=== PATIENT | female | born 1970 | race African-American/Black ===

== ENCOUNTER 2021-03-03 19:35 | Emergency (ER) | payer MEDICAID ==
[~2021-03-03] VITALS: Ht 185.4 cm; Wt 75.0 kg
[~2021-03-03 19:35] MED LIST: HALDOL; OLAN2.5T3 PO
[2021-03-03 21:06] VITALS: BP 158/91
== END 2021-03-03 21:10 | disposition home or self-care (01) ==
LOC: ER 19:35
DX: M79.89 Other specified soft tissue disorders (principal); Z86.59 Personal history of other mental and behavioral disorders
CPT/HCPCS: 99281

== ENCOUNTER 2021-05-01 14:52 | Emergency (ER) | payer MEDICAID ==
[~2021-05-01] VITALS: Ht 185.4 cm; Wt 73.0 kg
[2021-05-01 14:58] VITALS: BP 130/90
== END 2021-05-01 15:12 | disposition left against medical advice (07) ==
LOC: ER 15:01
DX: Z53.21 Procedure and treatment not carried out due to patient leaving prior to being seen by health care provider (principal)

== ENCOUNTER 2021-05-09 18:09 | Emergency (ER) | payer MEDICAID ==
[~2021-05-09] VITALS: Ht 175.3 cm; Wt 72.6 kg
[2021-05-09] MEDS ORDERED: MAGNESIUM/ALUMINUM HYDROXIDE/SIMETHICONE 30ML UDC PO STA (18:36)
[2021-05-09] MEDS ORDERED: KETOROLAC 30MG/ML VIAL IV STA (18:36)
[2021-05-09] MEDS ORDERED: SODIUM CHLORIDE 0.9% 1,000 ML IV ONE (18:45)
[2021-05-09 18:50] VITALS: BP 130/89
[2021-05-09 18:52] LABS: CHLORIDE 107 mEq/L (98-107)
[2021-05-09 18:53] LABS: BASOPHILS % 0.6 % (0.0-2.0); EOSINOPHILS % 0.2 % (0.0-5.0); HEMATOCRIT. 39.7 % (36.0-48.0); HEMOGLOBIN. 13.3 g/dL (12.0-16.0); LYMPHOCYTES % 21.8 % (20.0-50.0); MEAN CORPUSCULAR VOLUME 92.2 fL (81.0-99.0); MEAN PLATELET VOLUME 7.8 fl (7.4-10.4); MONOCYTES % 8.4 % (2.0-8.0); PLATELET 54 x1000/uL (130-400)
[2021-05-09 18:56] LABS: ETHANOL BLOOD 269 mg/dL
[2021-05-09] MEDS ORDERED: POTASSIUM CHLORIDE 20MEQ TABLET SR PO ONE (19:15)
[2021-05-09] MEDS ORDERED: CHLORDIAZEPOXIDE 25MG CAPSULE PO ONE (19:15)
== END 2021-05-09 19:29 | disposition left against medical advice (07) ==
LOC: ER 18:09
DX: T51.0X1A Toxic effect of ethanol, accidental (unintentional), initial encounter (principal); R10.33 Periumbilical pain; F20.9 Schizophrenia, unspecified; F31.9 Bipolar disorder, unspecified; E87.6 Hypokalemia; Y90.8 Blood alcohol level of 240 mg/100 ml or more; Y92.018 Other place in single-family (private) house as the place of occurrence of the external cause
CPT/HCPCS: 36415; 80053; 80320; 83690; 85025; 96361; 96374; 99283; J1885; J7030; Z7610; G0480

== ENCOUNTER 2021-05-15 06:36 | Emergency (ER) | payer MEDICAID ==
[~2021-05-15] VITALS: Ht 185.4 cm; Wt 75.0 kg
[2021-05-15] MEDS: ONDANSETRON HCL 4MG/2ML INJ IV STA (07:07)
[2021-05-15] MEDS: MORPHINE SULFATE 4 MG/ML CPJ (NOT FOR IM USE) IV STA (07:07)
[2021-05-15] MEDS: FAMOTIDINE 20MG/2ML VIAL IV STA (07:07)
[2021-05-15] MEDS: SODIUM CHLORIDE 0.9% 1,000 ML IV ONE (07:08)
[2021-05-15 07:15] LABS: HEMATOCRIT. 38.6 % (36.0-48.0); MEAN CORPUSCULAR HEMOGLOBIN 30.7 pg (28.0-32.0); MEAN CORPUSCULAR VOLUME 91.1 fL (81.0-99.0); MEAN PLATELET VOLUME 7.8 fl (7.4-10.4); PLATELET 69 x1000/uL (130-400); RED BLOOD CELL COUNT 4.24 mill/uL (4.2-5.4); RED CELL DISTRIBUTION WIDTH 15.3 % (11.6-14.6)
[2021-05-15 07:23] LABS: CHLORIDE 113 mEq/L (98-107)
[2021-05-15 07:27] LABS: ETHANOL BLOOD 167 mg/dL
[2021-05-15 07:28] LABS: INR 1.1; PROTHROMBIN TIME 11.5 sec (9.6-11.0)
[2021-05-15 08:14] LABS: PLATELET ESTIMATE DECREASED
[2021-05-15] MEDS ORDERED: ONDA4TAB5 MT (08:17)
[2021-05-15] MEDS ORDERED: OMEP20CA14 MT (08:17)
[2021-05-15] MEDS ORDERED: POTA20TA82 MT (08:17)
[2021-05-15 08:35] LABS: CLARITY URINE CLOUDY (CLEAR); COLOR URINE YELLOW (YELLOW); KETONES URINE NEGATIVE (NEGATIVE); LEUKOCYTE ESTERASE URINE NEGATIVE (NEGATIVE); NITRITE URINE NEGATIVE (NEGATIVE); OCCULT BLOOD URINE NEGATIVE (NEGATIVE); PH URINE 7.5 (4.5-8.0); PROTEIN URINE NEGATIVE (NEGATIVE); UROBILINOGEN URINE 0.2 E.U./dL (0.2-1.0)
[2021-05-15 08:46] LABS: *AMPHETAMINES SCREEN URINE NEGATIVE (NEGATIVE); *BARBITURATES SCREEN URINE NEGATIVE (NEGATIVE); *BENZODIAZEPINES SCREEN URINE NEGATIVE (NEGATIVE); *COCAINE SCREEN URINE NEGATIVE (NEGATIVE)
[2021-05-15 08:47] LABS: CANNABINOID URINE SCREEN NEGATIVE (NEGATIVE); METHADONE URINE SCREEN NEGATIVE (NEGATIVE); OPIATES URINE SCREEN PRESUMTIVE POSITIVE (NEGATIVE); PHENCYCLIDINE URINE SCREEN NEGATIVE (NEGATIVE)
[2021-05-15 08:50] VITALS: BP 139/68
== END 2021-05-15 08:58 | disposition home or self-care (01) ==
LOC: ER 06:36
DX: K80.50 Calculus of bile duct without cholangitis or cholecystitis without obstruction (principal); F10.129 Alcohol abuse with intoxication, unspecified; E87.8 Other disorders of electrolyte and fluid balance, not elsewhere classified; Z86.59 Personal history of other mental and behavioral disorders; Y90.6 Blood alcohol level of 120-199 mg/100 ml
CPT/HCPCS: 36415; 76705; 80053; 80305; 80320; 81003; 83690; 85025; 85610; 86850; 86900; 86901; 93005; 96361; 96374; 96375; 99285; J2270; J2405; J3490; J7030; G0480

== ENCOUNTER 2021-08-29 08:44 | Inpatient (IN) | payer MEDICAID, OTHER ==
[~2021-08-29] VITALS: Ht 185.4 cm; Wt 68.0 kg
[2021-08-29] VITALS (9 sets, daily range): BP systolic 69–130; BP diastolic 41–98
[~2021-08-29 08:44] MED LIST changes: -HALDOL; +OCTREOTIDE 1,000 MCG in SODIUM CHLORIDE 0.9% 98 ML IV SCH; -OLAN2.5T3 PO; +OMEP20CA14 MT; +ONDA4TAB5 MT; +POTA20TA82 MT
[2021-08-29] MEDS ORDERED: LACTATED RINGERS 1,000 ML IV STA (09:06)
[2021-08-29] MEDS ORDERED: LORAZEPAM 2MG/ML CPJ IV ONE (09:15)
[2021-08-29 09:28] LABS: HCG SCREEN NEGATIVE
[2021-08-29 09:30] LABS: CHLORIDE 112 mEq/L (98-107)
[2021-08-29 09:34] LABS: ETHANOL BLOOD 16 mg/dL
[2021-08-29 11:20] LABS: BASOPHILS % 0.5 % (0.0-2.0); EOSINOPHILS % 0.6 % (0.0-5.0); HEMATOCRIT. 33.1 % (36.0-48.0); HEMOGLOBIN. 11.1 g/dL (12.0-16.0); LYMPHOCYTES % 31.5 % (20.0-50.0); MEAN CORPUSCULAR VOLUME 92.6 fL (81.0-99.0); MEAN PLATELET VOLUME 7.8 fl (7.4-10.4); MONOCYTES % 10.9 % (2.0-8.0); NEUTROPHILS % 56.5 % (40.0-76.0); PLATELET 160 x1000/uL (130-400); RED BLOOD CELL COUNT 3.57 mill/uL (4.2-5.4); RED CELL DISTRIBUTION WIDTH 17.6 % (11.6-14.6)
[2021-08-29] MEDS ORDERED: PANTOPRAZOLE SODIUM 40 MG/VIAL IV NR (12:00)
[2021-08-29 13:00] LABS: CLARITY URINE CLOUDY (CLEAR); COLOR URINE YELLOW (YELLOW); KETONES URINE NEGATIVE (NEGATIVE); LEUKOCYTE ESTERASE URINE NEGATIVE (NEGATIVE); NITRITE URINE NEGATIVE (NEGATIVE); OCCULT BLOOD URINE 1+ (NEGATIVE); PH URINE 7.5 (4.5-8.0); PROTEIN URINE NEGATIVE (NEGATIVE); SPECIFIC GRAVITY URINE 1.017 (1.005-1.030); UROBILINOGEN URINE 0.2 E.U./dL (0.2-1.0)
[2021-08-29 13:16] LABS: METHADONE URINE SCREEN NEGATIVE (NEGATIVE)
[2021-08-29 13:17] LABS: *AMPHETAMINES SCREEN URINE NEGATIVE (NEGATIVE); *BARBITURATES SCREEN URINE NEGATIVE (NEGATIVE); *BENZODIAZEPINES SCREEN URINE NEGATIVE (NEGATIVE); *COCAINE SCREEN URINE NEGATIVE (NEGATIVE); CANNABINOID URINE SCREEN NEGATIVE (NEGATIVE); OPIATES URINE SCREEN NEGATIVE (NEGATIVE); PHENCYCLIDINE URINE SCREEN NEGATIVE (NEGATIVE)
[2021-08-29 13:40] LABS: HCG SCREEN NEGATIVE
[2021-08-29] MEDS ORDERED: LORAZEPAM 2MG/ML CPJ IV PRN (13:45)
[2021-08-29] MEDS ORDERED: ACETAMINOPHEN 325MG TABLET PO PRN (13:45)
[2021-08-29] MEDS ORDERED: ONDANSETRON HCL 4MG/2ML INJ IV PRN (13:45)
[2021-08-29] MEDS ORDERED: MULTIVITAMINS,THER W-MINERALS TABLET PO SCH (14:00)
[2021-08-29] MEDS ORDERED: FOLIC ACID 1 MG, THIAMINE HCL 100 MG in DEXTROSE 5% WATER 1,000 ML IV SCH (14:00)
[2021-08-29] MEDS: CHLORDIAZEPOXIDE 5 MG CAPSULE PO SCH ×2 (14:58→22:13)
[2021-08-29] MEDS: METOPROLOL TARTRATE 25MG TABLET PO SCH (21:00)
[2021-08-29 23:25] LABS: HEMATOCRIT 21.7 % (36.0-48.0); HEMOGLOBIN 7.3 g/dL (12.0-16.0)
[2021-08-30] VITALS (65 sets, daily range): BP systolic 93–170; BP diastolic 26–133
[2021-08-30] MEDS: PANTOPRAZOLE 80 MG in SODIUM CHLORIDE 0.9% 100 ML IV SCH ×2 (02:32→09:31)
[2021-08-30] MEDS: OCTREOTIDE 1,000 MCG in SODIUM CHLORIDE 0.9% 98 ML IV SCH (02:32)
[2021-08-30] MEDS: CHLORDIAZEPOXIDE 5 MG CAPSULE PO SCH ×3 (06:00→23:28)
[2021-08-30] MEDS ORDERED: OMEPRAZOLE 20MG CAPSULE EXTENDED RELEASE PO SCH (06:30)
[2021-08-30 08:04] LABS: BASOPHILS % 0.5 % (0.0-2.0); EOSINOPHILS % 1.9 % (0.0-5.0); HEMATOCRIT. 27.2 % (36.0-48.0); LYMPHOCYTES % 32.3 % (20.0-50.0); MEAN CORPUSCULAR HEMOGLOBIN 29.3 pg (28.0-32.0); MEAN CORPUSCULAR VOLUME 87.3 fL (81.0-99.0); MEAN PLATELET VOLUME 8.1 fl (7.4-10.4); MONOCYTES % 10.9 % (2.0-8.0); NEUTROPHILS % 54.4 % (40.0-76.0); PLATELET 93 x1000/uL (130-400); RED BLOOD CELL COUNT 3.11 mill/uL (4.2-5.4); RED CELL DISTRIBUTION WIDTH 21.6 % (11.6-14.6)
[2021-08-30 08:11] LABS: CHLORIDE 112 mEq/L (98-107)
[2021-08-30 08:18] LABS: HEMOGLOBIN. 9.1 g/dL (12.0-16.0)
[2021-08-30] MEDS ORDERED: MORPHINE SULFATE 2 MG/ML CPJ (NOT FOR IM USE) IV PRN (08:45)
[2021-08-30] MEDS: METOPROLOL TARTRATE 25MG TABLET PO SCH ×2 (08:46→20:42)
[2021-08-30] MEDS: MORPHINE SULFATE 2 MG/ML CPJ (NOT FOR IM USE) IV PRN (08:48)
[2021-08-30] MEDS ORDERED: THIAMINE HCL 100MG TABLET PO SCH (09:00)
[2021-08-30] MEDS ORDERED: IOHEXOL-300 100 ML BOTTLE ONE (10:48)
[2021-08-30] MEDS: FOLIC ACID 1 MG, THIAMINE HCL 100 MG, MVI, ADULT NO.1 10 ML in DEXTROSE 5% WATER 1,000 ML IV SCH (11:38)
[2021-08-30 12:38] LABS: HEMATOCRIT 26.5 % (36.0-48.0); HEMOGLOBIN 8.8 g/dL (12.0-16.0)
[2021-08-30 12:49] LABS: TOTAL IRON BINDING CAPACITY 273 ug/dL (250-450)
[2021-08-30 14:17] LABS: FOLIC ACID (FOLATE) SERUM 17.3 ng/mL (>5.38)
[2021-08-30] MEDS: PANTOPRAZOLE SODIUM 40 MG/VIAL IV SCH (16:35)
[2021-08-30] MEDS: SODIUM CHLORIDE 0.9% 1,000 ML IV SCH (20:43)
[2021-08-30 21:21] LABS: HEMATOCRIT 23.8 % (36.0-48.0)
[2021-08-31] VITALS (35 sets, daily range): BP systolic 58–160; BP diastolic 29–136
[2021-08-31 01:09] LABS: HEMATOCRIT 24.7 % (36.0-48.0); HEMOGLOBIN 8.4 g/dL (12.0-16.0)
[2021-08-31] MEDS: OCTREOTIDE 1,000 MCG in SODIUM CHLORIDE 0.9% 98 ML IV SCH (02:32)
[2021-08-31] MEDS: CHLORDIAZEPOXIDE 5 MG CAPSULE PO SCH ×3 (05:05→21:09)
[2021-08-31] MEDS ORDERED: FOLIC ACID 1 MG, THIAMINE HCL 100 MG in DEXTROSE 5% WATER 1,000 ML IV SCH (09:00)
[2021-08-31] MEDS ORDERED: POLYMYXIN B SULFATE/TMP 10ML BOTTLE BOTHEYE SCH (09:00)
[2021-08-31] MEDS: PANTOPRAZOLE SODIUM 40 MG/VIAL IV SCH ×2 (09:24→17:56)
[2021-08-31] MEDS: METOPROLOL TARTRATE 25MG TABLET PO SCH ×2 (09:25→21:00)
[2021-08-31] MEDS: SODIUM CHLORIDE 0.9% 1,000 ML IV SCH ×2 (09:26→17:56)
[2021-08-31 10:04] LABS: BASOPHILS % 0.3 % (0.0-2.0); EOSINOPHILS % 2.7 % (0.0-5.0); HEMATOCRIT. 25.1 % (36.0-48.0); HEMOGLOBIN. 8.2 g/dL (12.0-16.0); LYMPHOCYTES % 20.3 % (20.0-50.0); MEAN CORPUSCULAR HEMOGLOBIN 28.8 pg (28.0-32.0); MEAN CORPUSCULAR VOLUME 87.9 fL (81.0-99.0); MEAN PLATELET VOLUME 7.8 fl (7.4-10.4); MONOCYTES % 10.1 % (2.0-8.0); NEUTROPHILS % 66.6 % (40.0-76.0); PLATELET 123 x1000/uL (130-400); RED BLOOD CELL COUNT 2.86 mill/uL (4.2-5.4); RED CELL DISTRIBUTION WIDTH 21.5 % (11.6-14.6)
[2021-08-31 10:11] LABS: CHLORIDE 110 mEq/L (98-107)
[2021-08-31 10:13] LABS: INR 1.1; PROTHROMBIN TIME 11.4 sec (9.6-11.0)
[2021-08-31] MEDS ORDERED: PROPOFOL 200MG/20ML VIAL IV ONE ×2 (12:33→13:06)
[2021-08-31] MEDS ORDERED: NEOSTIGMINE METHYLSULFATE 1MG/ML 10 ML VIAL ONE (12:33)
[2021-08-31] MEDS ORDERED: LIDOCAINE HCL/PF 1% 10 MG/ML 5ML VIAL ONE (13:05)
[2021-08-31] MEDS ORDERED: NALOXONE HCL 0.4MG/ML VIAL IV PRN (14:45)
[2021-08-31 14:55] LABS: HEMATOCRIT 24.3 % (36.0-48.0); HEMOGLOBIN 8.1 g/dL (12.0-16.0)
[2021-08-31 18:17] LABS: HEMATOCRIT 27.2 % (36.0-48.0); HEMOGLOBIN 8.9 g/dL (12.0-16.0)
[2021-09-01] VITALS (30 sets, daily range): BP systolic 98–168; BP diastolic 48–110
[2021-09-01 00:48] LABS: HEMATOCRIT 24.5 % (36.0-48.0); HEMOGLOBIN 8.1 g/dL (12.0-16.0)
[2021-09-01] MEDS: SODIUM CHLORIDE 0.9% 1,000 ML IV SCH ×2 (03:08→14:22)
[2021-09-01 05:46] LABS: BASOPHILS % 0.2 % (0.0-2.0); EOSINOPHILS % 2.5 % (0.0-5.0); HEMATOCRIT. 23.8 % (36.0-48.0); LYMPHOCYTES % 16.3 % (20.0-50.0); MEAN CORPUSCULAR HEMOGLOBIN 29.3 pg (28.0-32.0); MEAN CORPUSCULAR VOLUME 87.3 fL (81.0-99.0); MEAN PLATELET VOLUME 7.4 fl (7.4-10.4); MONOCYTES % 10.3 % (2.0-8.0); NEUTROPHILS % 70.7 % (40.0-76.0); PLATELET 142 x1000/uL (130-400); RED BLOOD CELL COUNT 2.72 mill/uL (4.2-5.4); RED CELL DISTRIBUTION WIDTH 21.8 % (11.6-14.6)
[2021-09-01] MEDS: CHLORDIAZEPOXIDE 5 MG CAPSULE PO SCH ×2 (06:57→14:22)
[2021-09-01] MEDS: PANTOPRAZOLE SODIUM 40 MG/VIAL IV SCH (08:11)
[2021-09-01] MEDS: FOLIC ACID 1 MG, THIAMINE HCL 100 MG, MVI, ADULT NO.1 10 ML in DEXTROSE 5% WATER 1,000 ML IV SCH (08:12)
[2021-09-01] MEDS: METOPROLOL TARTRATE 25MG TABLET PO SCH (08:12)
[2021-09-01] MEDS: MORPHINE SULFATE 2 MG/ML CPJ (NOT FOR IM USE) IV PRN (08:13)
[2021-09-01] MEDS ORDERED: SUCR1TAB MT (08:46)
[2021-09-01] MEDS ORDERED: THIA100T88 MT (08:46)
[2021-09-01] MEDS ORDERED: OMEP40CA20 MT (08:46)
[2021-09-01 12:45] LABS: HEMATOCRIT 25.7 % (36.0-48.0); HEMOGLOBIN 8.5 g/dL (12.0-16.0)
== END 2021-09-01 16:15 | disposition home or self-care (01) | DRG 241 ==
LOC: ER 08:44 → 6WST 11:56 → ENRESERV 17:51 → MICUNO 08-30 01:50 → CVICU 08-30 15:54
PROVIDERS: ADMIT Internal Medicine; ATTEND Internal Medicine
PROC: 30233N1 Transfusion of Nonautologous Red Blood Cells into Peripheral Vein, Percutaneous Approach (ICD-10-PCS; 2021-08-30)
PROC: 0DB78ZX Excision of Stomach, Pylorus, Via Natural or Artificial Opening Endoscopic, Diagnostic (ICD-10-PCS; principal; 2021-08-31)
DX: K25.4 Chronic or unspecified gastric ulcer with hemorrhage (principal); E43 Unspecified severe protein-calorie malnutrition; E87.8 Other disorders of electrolyte and fluid balance, not elsewhere classified; K22.6 Gastro-esophageal laceration-hemorrhage syndrome; D64.9 Anemia, unspecified; I10 Essential (primary) hypertension; F10.10 Alcohol abuse, uncomplicated; H10.89 Other conjunctivitis; F31.9 Bipolar disorder, unspecified; F20.9 Schizophrenia, unspecified; R00.0 Tachycardia, unspecified; K29.80 Duodenitis without bleeding; Z20.822 Contact with and (suspected) exposure to COVID-19; K29.60 Other gastritis without bleeding; Y90.0 Blood alcohol level of less than 20 mg/100 ml; T39.395A Adverse effect of other nonsteroidal anti-inflammatory drugs [NSAID], initial encounter; Y92.89 Other specified places as the place of occurrence of the external cause; Z68.1 Body mass index [BMI] 19.9 or less, adult; Z71.41 Alcohol abuse counseling and surveillance of alcoholic; Z79.82 Long term (current) use of aspirin; Z79.899 Other long term (current) drug therapy
CPT/HCPCS: 36415; 71045; 74177; 76700; 80048; 80053; 80076; 80305; 80320; 81003; 82270; 82607; 82728; 82746; 83540; 83550; 84703; 85014; 85018; 85025; 85044; 85379; 86850; 86900; 86920; 87426; 88305; 88312; 88313; 93005; 99285; C9113; J2060; J2270; J2354; J2704; J2710; J3411; J3490; J7030; J7050; J7070; J7120; P9016; Q9967; G0480